=== PATIENT | female | born 1995 | race Caucasian/White ===

== ENCOUNTER 2017-12-31 11:46 | Emergency (ER) | END 2017-12-31 17:56 | disposition home or self-care (01) ==

== ENCOUNTER 2018-12-26 00:30 | Outpatient (CLI) | payer OTHER ==
[~2018-12-26] VITALS: Ht 154.9 cm; Wt 67.0 kg
[~2018-12-26 00:30] MED LIST: ACET500C5 PO; NITR-58 PO
[2018-12-26 00:56] VITALS: BP 108/61; PULSE 104; RESP 16; Ht 154.9 cm; Wt 67.0 kg
[2018-12-26] MEDS ORDERED: CALC600T24 PO (01:07)
[2018-12-26] MEDS ORDERED: PREN-93 PO (01:07)
[2018-12-26] MEDS ORDERED: FER325 PO (01:07)
[2018-12-26] MEDS ORDERED: ACETAMINOPHEN 500 MG TAB PO ONE (01:17)
--- NOTE | 2018-12-26 04:06 | TRIAGE ---
OB Triage Datetime Report Generated by CPN: 12/26/2018 04:05 Datetime: 12/26/2018 02:54 Labor Evaluation Frequency: 0 Monitor Mode: External Pattern: Normal: <= 5 Contractions in 10 Minutes Heart Rate FHR Baseline Rate: 145 Monitor Mode: External US Variability: Moderate 6-25 bpm Decelerations: None Datetime: 12/26/2018 02:35 Pain Assessment Pain Scale: 0 Pain Presence: None/Denies Pain Type: N/A Pain Assessment Comments: PT DENIES FEELING ANY PAIN. PT WAS ABLE TO SLEEP Datetime: 12/26/2018 02:02 Monitor Mode: External US Datetime: 12/26/2018 02:00 Labor Evaluation Frequency: X1 Monitor Mode: External Duration (sec)2399: 40 Pattern: Normal: <= 5 Contractions in 10 Minutes Heart Rate FHR Baseline Rate: 145 Monitor Mode: External US Variability: Moderate 6-25 bpm Accelerations: 15X15 Decelerations: None Comments: LOSS OF CONTACT DUE TO GESTATIONAL AGE Datetime: 12/26/2018 00:57 Time of Arrival: 12/26/2018 00:30 EGA: 23.3 Arrived By: Wheelchair Arrived From: Home Chief Complaint: lower abdominal pain Movement: Present Contractions: Denies/Absent Rupture of Membranes: Denies Vaginal Bleeding: None Vaginal Discharge: Denies Recent Sexual Intercouse: Yes Abdominal Trauma: Not Applicable Patient Complaints: Cramping Time Provider Notified: 12/26/2018 01:11 Provider Notified: DESIRAE Initial Plan: cefm, CX LENGTH, UA Datetime: 12/26/2018 00:56 Stage of : OB Triage Assessment Type: Triage Maternal Assessment Level of Consciousness: Fully Conscious DTR's/Clonus: DTRs 2+; No Clonus Headache: Denies Blurred Vision: No Respiratory Effort: Unlabored; Regular Rhythm; Equal Expansion Breath Sounds, Left: Clear and Equal Breath Sounds, Right: Clear and Equal Nausea/Vomiting: Denies RUQ Epigastric Pain: Denies Lower Extremities Edema: None Degree: None Upper Extremities Edema: None Degree: None Facial Edema: None Temperature Route: Oral Fall Risk Assessment History of Falling: (0) No Secondary Diagnosis: (0) No Ambulatory Aid: (0) Bedrest/Nurse Assist IV Therapy: (0) No Gait: (0) Normal/Bedrest/Immobile Mental Status: (0) Oriented to Own Ability Fall Score: 0 Fall Risk Score Definition: No Risk: No action required Pain Assessment Pain Scale: 6 Pain Presence: Constant Pain Type: Cramping Pain Location: Abdomen Pain Goal: 2 Pain Relief Measures: Comfort Measures
--- NOTE | 2018-12-26 14:35 | PN ---
Triage Information Date/Time December 26, 2018 Reason for visit: Abdominal pain Weeks of Gestation 23 weeks and 3 days /Para 4 para 1 Diabetes: none Hypertention: none Additional information 23-year-old with IP 23 weeks and 3 days presented with complaint of abdominal pain. Denies any leaking of fluid, vaginal bleeding. Reports some burning sensation with urination. Denies any fever or chills. Objective Vital Signs Date Temp Pulse Resp B/P (MAP) Pulse Ox O2 O2 Flow FiO2 Time Delivery Rate 12/26/18 98.1 104 16 108/61 Room Air 00:56 (77) Heart Rate: 130's Exam General appearance: Alert and oriented x4 does not appear to be in any acute distress Abdomen: Soft, gravid, fundal height consider gestational age Tenderness in the lower abdomen noted in suprapubic area NST: Category 1 No contraction noted on the monitor UA: Consistent with UTI Cervical length: 4.7 Results/Medications Results 24 hrs Laboratory Tests Test 12/26/18 01:00 Urine Color YELLOW Urine Clarity SLIGHTLY CLOUDY A Urine pH 8.0 Urine Specific [place] 1.005 Urine Ketones NEGATIVE Urine Nitrite NEGATIVE Urine Bilirubin NEGATIVE Urine Urobilinogen NEGATIVE Urine Leukocyte Esterase 2+ H Urine Microscopic RBC 2 Urine Microscopic WBC 24 H Urine Squamous Epithelial Cells FEW Urine Amorphous Crystals FEW A Urine Bacteria FEW A Urine Hemoglobin NEGATIVE Urine Glucose NEGATIVE Urine Total Protein NEGATIVE Imaging Results PROCEDURE: Obstetrical ultrasound, limited. CLINICAL INDICATION: Pelvic pain. TECHNIQUE: Transvaginal evaluation of the cervix was performed. The images were reviewed on a PACS workstation. COMPARISON: No prior studies are available for comparison. FINDINGS: The cervix is closed measuring 4.7 cm. IMPRESSION: Cervical length of 4.7 cm. Assessment/Plan 23 weeks and 3 days Suprapubic pain Urinary symptoms Symptoms consistent with UTI Symptoms resolved with p.o. hydration and Tylenol No evidence of labor Patient will be discharged home with antibiotics, Macrobid 100 mg p.o. twice daily for 7 days prescribed labor precautions kick count and adequate hydration and follow-up within 24-48 hours with primary OB discussed with patient Precaution was given to return to triage if she has any leaking of fluid, vaginal bleeding contractions, fever chills or for any other concerns Verbalized understanding. All questions were answered to patient's best satisfaction LATANYA MERRILL MD Dec 26, 2018 14:35
== END 2018-12-26 03:10 | disposition home or self-care (01) ==
LOC: L-D 00:30 → OBT 00:30
PROVIDERS: ATTEND Obstetrics & Gynecology
DX: O26.892 Other specified pregnancy related conditions, second trimester (principal); Z3A.23 23 weeks gestation of pregnancy; R10.2 Pelvic and perineal pain
CPT/HCPCS: 76817; 81001; Z7500; Z7610; G0463

== ENCOUNTER 2019-02-15 05:44 | Inpatient (IN) | payer SELFPAY ==
[~2019-02-15] VITALS: Ht 154.9 cm; Wt 68.3 kg
[~2019-02-15 05:44] MED LIST changes: +CALC600T24 PO; +FER325 PO; -NITR-58 PO; +PREN-93 PO
[2019-02-15 05:48] VITALS: Ht 154.9 cm; Wt 68.3 kg
[2019-02-15 05:49] VITALS: BP 101/57; PULSE 136; RESP 16
[2019-02-15] MEDS ORDERED: LACTATED RINGER'S 1,000 ML IV SCH (06:30)
[2019-02-15] MEDS: SOD CHLORIDE 0.9% 1,000 ML IV SCH ×2 (10:39→18:41)
[2019-02-15] MEDS: CEFTRIAXONE 1 GM/50 ML (PMX) 50 ML IVPB SCH (10:39)
--- NOTE | 2019-02-15 16:18 | HP ---
Date/Time of Note Date/Time of Note DATE: 02/15/19 TIME: 16:16 OB - History Hx of Present Chief Complaint: back pain Estimated Due Date: Apr 21, 2019 : 4 Para: 1 Spontaneous : 2 Therapeutic : 0 Care: Good Care Obstetrical Complications: None Past Family/Social History * Past Medical, Surgical, Family and Obstetric Histories reviewed from chart. OB Admission Exam Vital Signs Vital Signs Vital Signs Date Temp Pulse Resp B/P (MAP) Pulse Ox O2 O2 Flow FiO2 Time Delivery Rate 02/15/19 99.2 136 16 101/57 Room Air 05:49 (72) Physical Exam HEENT: WNL Heart: Rhythm Normal Lungs: Clear, Equal Abdomen: WNL Extremities: Normal Reflexes: Normal Cervical Dilatation: None Heart Rate: 150's Accelerations: Accelerations Present Decelerations: No Decelerations Last 72 hours Lab Results CBC & BMP 02/15/19 06:52 Liver Function Test 02/15/19 06:52 Alanine Aminotransferase (ALT/SGPT) 19 Albumin 3.3 Alkaline Phosphatase 101 Aspartate Amino Transf (AST/SGOT) 14 L Direct Bilirubin 0.00 Total Protein 6.4 OB Assessment/Plan Reason for admission: other Other Assessment: R/O pyelonephritis Plan: Other Other plan: Admit Urine culture Blood culture IV CARRIE Dueñas MD February 15, 2019 16:18
[2019-02-15] MEDS: ACETAMINOPHEN 500 MG TAB PO PRN (19:19)
[2019-02-16] MEDS: SOD CHLORIDE 0.9% 1,000 ML IV SCH ×3 (02:31→17:58)
[2019-02-16] MEDS: CEFTRIAXONE 1 GM/50 ML (PMX) 50 ML IVPB SCH (09:21)
[2019-02-16] MEDS: ACETAMINOPHEN 500 MG TAB PO PRN (09:27)
--- NOTE | 2019-02-16 19:25 | DS ---
Date/Time of Note Date/Time of Note DATE: 02/16/19 TIME: 19:25 Obstetrical Discharge Record Final Diagnosis Final Diagnosis: not delivered Condition on Discharge Physical Assessment Voiding: Yes Bowel Movement: Yes Calf Tenderness: No Patient Condition: Stable CARRIE ARGUETA MD February 16, 2019 19:25
[2019-02-16] MEDS ORDERED: PREN1TAB64 PO (20:47)
[2019-02-16] MEDS ORDERED: FERR325T5 PO (20:50)
== END 2019-02-16 21:20 | disposition home or self-care (01) | DRG 833 ==
LOC: OBT 05:44 → L-D 05:46 → OBT 09:00 → L-D 09:10 → MERGE 09:10 → L-D 09:36 → PP1 19:58
PROVIDERS: ADMIT Obstetrics & Gynecology; ATTEND Obstetrics & Gynecology
DX: O26.893 Other specified pregnancy related conditions, third trimester (principal); M54.9 Dorsalgia, unspecified; Z3A.30 30 weeks gestation of pregnancy
CPT/HCPCS: 36415; 76815; 76817; 76818; 80053; 81001; 85025; 87086; 93005; 96360; 96361; G0463; J0696; J7030; J7120

== ENCOUNTER 2019-04-09 08:10 | Inpatient (IN) | payer OTHER ==
[~2019-04-09] VITALS: Ht 154.9 cm; Wt 71.3 kg
[~2019-04-09 08:10] MED LIST changes: +FERR325T5 PO; +PREN1TAB64 PO
[2019-04-09 08:28] VITALS: Ht 154.9 cm; Wt 71.3 kg
[2019-04-09 08:29] VITALS: BP 107/60; PULSE 100; RESP 18
[2019-04-09] MEDS: LACTATED RINGER'S 1,000 ML IV SCH (10:59)
--- NOTE | 2019-04-09 13:39 | TRIAGE ---
OB Triage Datetime Report Generated by CPN: 04/09/2019 13:39 Datetime: 04/09/2019 13:00 Stage of : OB Triage Maternal Assessment Level of Consciousness: Keenly Alert, Responsive Labor Evaluation Frequency: 4/hr with some irritability noted Monitor Mode: External Quality: Mild Resting Tone [place]: Relaxed Heart Rate FHR Baseline Rate: 150 Monitor Mode: External US Variability: Moderate 6-25 bpm Accelerations: 15X15 Decelerations: None Pain Assessment Pain Scale: 0 Pain Goal: 3 Vaginal Exam Membrane Status: Intact Vaginal Bleeding: None Datetime: 04/09/2019 12:00 Stage of : OB Triage Maternal Assessment Level of Consciousness: Keenly Alert, Responsive Labor Evaluation Frequency: 3UC/HR Monitor Mode: External Duration (sec)2399: 90-110 Quality: Mild Resting Tone [place]: Relaxed Heart Rate FHR Baseline Rate: 150 Monitor Mode: External US Variability: Moderate 6-25 bpm Accelerations: 15X15 Decelerations: None Category: Category I Pain Assessment Pain Scale: 0 Pain Goal: 3 Vaginal Exam Membrane Status: Intact Vaginal Bleeding: None Datetime: 04/09/2019 11:00 Stage of : OB Triage Maternal Assessment Level of Consciousness: Keenly Alert, Responsive Labor Evaluation Frequency: 0 Monitor Mode: External Resting Tone [place]: Relaxed Heart Rate FHR Baseline Rate: 150 Monitor Mode: External US Variability: Moderate 6-25 bpm Accelerations: 15X15 Decelerations: None Pain Assessment Pain Scale: 0 Pain Goal: 3 Vaginal Exam Membrane Status: Intact Vaginal Bleeding: None Datetime: 04/09/2019 10:00 Stage of : OB Triage Maternal Assessment Level of Consciousness: Keenly Alert, Responsive Labor Evaluation Frequency: 0 Monitor Mode: External Resting Tone [place]: Relaxed Heart Rate FHR Baseline Rate: 150 Monitor Mode: External US Variability: Moderate 6-25 bpm Accelerations: 15X15 Decelerations: None Pain Assessment Pain Scale: 0 Pain Goal: 3 Vaginal Exam Membrane Status: Intact Vaginal Bleeding: None Datetime: 04/09/2019 09:00 Stage of : OB Triage Maternal Assessment Level of Consciousness: Keenly Alert, Responsive Labor Evaluation Frequency: 0 Monitor Mode: External Resting Tone [place]: Relaxed Heart Rate FHR Baseline Rate: 150 Monitor Mode: External US Variability: Moderate 6-25 bpm Accelerations: 15X15 Decelerations: None Category: Category I Pain Assessment Pain Scale: 0 Pain Goal: 3 Vaginal Exam Membrane Status: Intact Vaginal Bleeding: None Datetime: 04/09/2019 08:25 Assessment Type: Triage Maternal Assessment Level of Consciousness: Keenly Alert, Responsive DTR's/Clonus: DTRs 2+; No Clonus Headache: Denies Blurred Vision: No Respiratory Effort: Unlabored; Regular Rhythm; Equal Expansion Breath Sounds, Left: Clear and Equal Breath Sounds, Right: Clear and Equal Nausea/Vomiting: Denies RUQ Epigastric Pain: Denies Lower Extremities Edema: None Degree: None Upper Extremities Edema: None Degree: None Facial Edema: None Fall Risk Assessment History of Falling: (0) No Secondary Diagnosis: (0) No Ambulatory Aid: (0) Bedrest/Nurse Assist IV Therapy: (0) No Gait: (0) Normal/Bedrest/Immobile Mental Status: (0) Oriented to Own Ability Fall Score: 0 Fall Risk Score Definition: No Risk: No action required Datetime: 04/09/2019 08:23 Time of Arrival: 04/09/2019 08:06 EGA: 38.2 Arrived By: Ambulatory Arrived From: Home Chief Complaint: PT. HERE S/P FALL Movement: Present Contractions: Denies/Absent Rupture of Membranes: Denies Vaginal Bleeding: None Vaginal Discharge: Denies Recent Sexual Intercouse: Denies Abdominal Trauma: Fall Patient Complaints: Back Pain Time Provider Notified: 04/09/2019 08:50 Provider Notified: KENDALL Initial Plan: CBC/UA/EFW/BPP/T_S/ (Annotations: Data stored by CPN on behalf of user) Datetime: 04/09/2019 08:19 Monitor Mode: External Monitor Mode: External US Datetime: 12/26/2018 00:57 EGA: 23.3 Datetime: 12/26/2018 00:56 Fall Score: 0 Fall Risk Score Definition: No Risk: No action required
[2019-04-09] MEDS: DEXTROSE 5%-LR 1,000 ML IV SCH ×2 (14:53→20:03)
--- NOTE | 2019-04-09 15:18 | HP ---
Date/Time of Note Date/Time of Note DATE: 04/09/19 TIME: 15:15 OB - History Hx of Present Chief Complaint: s/p fall on abdomen Estimated Due Date: Apr 21, 2019 : 4 Para: 1 Spontaneous : 2 Therapeutic : 0 Care: Good Care Ultrasounds: Normal mid trimester US Obstetrical Complications: None Medical Complications: None Past Family/Social History * Past Medical, Surgical, Family and Obstetric Histories reviewed from chart. GBS Status: Negative OB Admission Exam Vital Signs Vital Signs Vital Signs Date Temp Pulse Resp B/P (MAP) Pulse Ox O2 O2 Flow FiO2 Time Delivery Rate 04/09/19 98.8 100 18 107/60 Room Air 08:29 (76) Physical Exam HEENT: WNL Heart: Rhythm Normal Lungs: Clear, Equal Abdomen: WNL Extremities: Normal Reflexes: Normal Cervical Dilatation: None Membranes: Intact Heart Rate: 120's Accelerations: Accelerations Present Decelerations: No Decelerations Varibility: Moderate Contractions on Admission: 6-10 Minutes Apart Last 72 hours Lab Results CBC & BMP 04/09/19 09:28 OB Assessment/Plan Reason for admission: other Other Assessment: s/p fall Plan: Other Other plan: Admit Continuous monitoring CARRIE ARGUETA MD Apr 09, 2019 15:18
[2019-04-10] MEDS: DEXTROSE 5%-LR 1,000 ML IV SCH (04:29)
[2019-04-10] MEDS: LACTATED RINGER'S 1,000 ML IV SCH ×3 (12:53→22:19)
[2019-04-10] MEDS ORDERED: LACTATED RINGER'S 1,000 ML IV SCH (12:55)
--- NOTE | 2019-04-10 13:13 | QN ---
Documentation Comment Patient has no complaint. Patient denies any leakage of fluid. Afebrile VSS Strip Reactive JARRETT 6.8 Will give IV hydration Repeat JARRETT on 04/11/2019. CARRIE ARGUETA MD Apr 10, 2019 13:13
--- NOTE | 2019-04-11 14:01 | QN ---
Documentation Comment Patient c/o left shouldrer pain. Patient denies any leakage of fluid. Afebrile VSS Strip Reactive JARRETT decreasing Will get Orthopedic consult Will consider induction of labor due to decreasing JARRETT. CARRIE ARGUETA MD Apr 11, 2019 14:01
[2019-04-11] MEDS ORDERED: CARBOPROST 250 MCG INJ IM PRN (15:00)
[2019-04-11] MEDS ORDERED: MISOPROSTOL 200 MCG TAB PR PRN (15:00)
[2019-04-11] MEDS ORDERED: OXYTOCIN 30 UNITS/LR 500 ML IV SCH ×2 (15:00)
[2019-04-11] MEDS ORDERED: METHYLERGONOVINE 0.2 MG INJ IM PRN (15:00)
[2019-04-11] MEDS ORDERED: LIDOCAINE 1% (MPF) 30 ML INJ INJ PRN (15:00)
[2019-04-11] MEDS ORDERED: IBUPROFEN 600 MG TAB PO PRN (15:00)
[2019-04-11] MEDS ORDERED: BUTORPHANOL 2 MG INJ IV PRN (15:00)
[2019-04-11] MEDS ORDERED: OXYTOCIN 30 UNITS/LR 500 ML IV PRN (15:00)
--- NOTE | 2019-04-11 16:40 | CONS ---
Assessment/Plan Assessment/Plan Hospital Course (Demo Recall) 23-year-old female who is 38 weeks with left shoulder pain. At this time there is nothing concerning for any urgent or emergent orthopedic intervention. There is very low concern for any fracture or dislocation of the shoulder. Given that she is 38 weeks and her physical exam and history I do not think x-rays are necessary at this time. She likely has a strain of her rotator cuff versus her long head of the biceps tendon. There is possibility for intra-articular injury including labral injury, however this is less likely. At this time she is weightbearing as tolerated to her left upper extremity. She can use it as tolerated. There are no specific restrictions. If the patient's symptoms do not improve over the next 2 to 4 weeks she should follow-up in my clinic for further evaluation and treatment. At that time we will likely obtain an MRI for further evaluation. Consultation Date/Type/Reason Admit Date/Time Apr 09, 2019 at 13:30 Date of Consultation: Apr 11, 2019 Reason for Consultation Left shoulder pain Date/Time of Note DATE: 04/11/19 TIME: 16:32 Hx of Present Illness This is a 23-year-old female who is 38 weeks who fell 2 days ago on Sunday from a ground-level height. She braced herself with both arms. After the fall she noticed her left shoulder being sore. She was immediately able to range her shoulder and use her left upper extremity as usual but it was sore. She denies any numbness or tingling. Patient complains of pain and subjective weakness with range of motion of the left upper extremity. It is worse today than yesterday. Patient denies any previous injury to the left upper extremity. The pain is mostly anterior but also posterior shoulder as well. No significant radiation of pain down the lateral aspect of the arm. No pain distal to the elbow. Patient denies fever, chills, shortness of breath, chest pain, nausea/vomiting, constipation, diarrhea, numbness, and tingling. Past Medical History Medical History: no pertinent history Home Meds Reported Medications Ferrous Sulfate (Ferrous Sulfate) 325 Mg Tablet.dr, 325 MG PO 02/16/19 Calcium Carbonate* (Calcium Carbonate*) 600 MG Ca Tab, 600 MG PO, TAB 12/26/18 Vit No.124/Iron/FA ( Vitamin Tablet) 1 Each Tablet, 1 EACH PO, TAB 12/26/18 Discontinued Reported Medications PNV CMB#95/Ferrous Fumarate/FA ( Tablet) 1 Each Tablet, 1 TAB PO DAILY, TAB 02/16/19 Ferrous Sulfate* (Ferrous Sulfate*) 325 Mg Tabec, 325 MG PO DAILY, TAB 12/26/18 Discontinued Scripts Acetaminophen* (Tylophen*) 500 Mg Capsule, 1 CAP PO Q6H PRN for PAIN AND OR ELEVATED TEMP, #20 CAP Prov:ELIUD MCBRIDE PA-C 12/31/17 Medications Current Medications Dextrose/Lactated Ringer's 1,000 ml @ 125 mls/hr Q8H IV Last administered on 04/10/19at 04:29; Admin Dose 125 MLS/HR; Start 04/09/19 at 15:00 Lactated Ringer's 1,000 ml @ 150 mls/hr Q6H40M IV Last administered on 04/10/19at 22:19; Admin Dose 150 MLS/HR; Start 04/10/19 at 13:55 Butorphanol Tartrate (Stadol) 2 mg Q2H PRN IV .PAIN SCALE 6-10; Start 04/11/19 at 15:00 Lidocaine (Xylocaine 1% (Mpf)) 30 ml ONCE PRN INJ .EPISIOTOMY; Start 04/11/19 at 15:00 Oxytocin/Lactated Ringer's 500 ml @ 500 mls/hr ONCE POST IV ; Start 04/11/19 at 15:00 Oxytocin/Lactated Ringer's 500 ml @ 125 mls/hr POST IV ; Start 04/11/19 at 15:00 Ibuprofen (Motrin) 600 mg ONCE PRN PO .PAIN 1-5; Start 04/11/19 at 15:00 Oxytocin/Lactated Ringer's 500 ml @ 0 mls/hr ONCE PRN IV .VAGINAL BLEEDING; Start 04/11/19 at 15:00 Methylergonovine Maleate (Methergine) 0.2 mg ONCE PRN IM .VAGINAL BLEEDING; Start 04/11/19 at 15:00 Carboprost Tromethamine (Hemabate) 250 mcg ONCE PRN IM .VAGINAL BLEEDING; Start 04/11/19 at 15:00 Misoprostol (Cytotec) 1,000 mcg ONCE PRN OK .VAGINAL BLEEDING; Start 04/11/19 at 15:00 Allergies: Coded Allergies: No Known Allergy (Unverified , 04/09/19) Past Surgical History Past Surgical Hx: noncontributory Family History Significant Family History: no pertinent family hx Social History Alcohol Use: none Smoking Status: Never smoker Drug Use: none Exam/Review of Systems Exam Vitals Vital Signs Date Temp Pulse Resp B/P (MAP) Pulse Ox O2 O2 Flow FiO2 Time Delivery Rate 04/09/19 98.8 100 18 107/60 Room Air 08:29 (76) Intake and Output 04/10/19 04/10/19 04/11/19 1515:00 23:00 07:00 IntakeIntake Total 800 ml 1600 ml 150 ml OutputOutput Total 1200 ml 2300 ml 400 ml BalanceBalance -400 ml -700 ml -250 ml Exam General Examination: General Appearance Awake, alert, in no acute distress, pleasant and cooperative. Heart regular rhythm. Lungs breathing comfortably, no tachypnea or dyspnea. MUSCULOSKELETAL: Left shoulder Skin is intact. There is no atrophy around the shoulder. There is no ecchymosis around the shoulder or arm. TTP over the long head of the biceps. There is no gross deformity of the shoulder or left upper extremity. ----- Active = Passive ROM: FE: 160 with pain Abd: 160 with pain ER: 70 IR: not tested. Patient lying in bed ----- Muscle Strength Supraspinatus: 4+/5 Subscapularis: 4+/5 Infraspinatus: 4+/5 Teres Minor: 4+/5 ----- Negative impingement Negative drop Sign ----- Sensation intact to light touch in a median, ulnar, radial, and axillary distribution. Motor is intact in a median, ulnar, radial, anterior interosseous, and posterior interosseous nerve distribution. Radial and ulnar artery are +2. Wrist extension and flexion are intact. Compartments are soft Results Result Diagram: 04/09/19 0928 Medications Medication Current Medications Dextrose/Lactated Ringer's 1,000 ml @ 125 mls/hr Q8H IV Last administered on 04/10/19at 04:29; Admin Dose 125 MLS/HR; Start 04/09/19 at 15:00 Lactated Ringer's 1,000 ml @ 150 mls/hr Q6H40M IV Last administered on 04/10/19at 22:19; Admin Dose 150 MLS/HR; Start 04/10/19 at 13:55 Butorphanol Tartrate (Stadol) 2 mg Q2H PRN IV .PAIN SCALE 6-10; Start 04/11/19 at 15:00 Lidocaine (Xylocaine 1% (Mpf)) 30 ml ONCE PRN INJ .EPISIOTOMY; Start 04/11/19 at 15:00 Oxytocin/Lactated Ringer's 500 ml @ 500 mls/hr ONCE POST IV ; Start 04/11/19 at 15:00 Oxytocin/Lactated Ringer's 500 ml @ 125 mls/hr POST IV ; Start 04/11/19 at 15:00 Ibuprofen (Motrin) 600 mg ONCE PRN PO .PAIN 1-5; Start 04/11/19 at 15:00 Oxytocin/Lactated Ringer's 500 ml @ 0 mls/hr ONCE PRN IV .VAGINAL BLEEDING; St art 04/11/19 at 15:00 Methylergonovine Maleate (Methergine) 0.2 mg ONCE PRN IM .VAGINAL BLEEDING; St art 04/11/19 at 15:00 Carboprost Tromethamine (Hemabate) 250 mcg ONCE PRN IM .VAGINAL BLEEDING; Start 04/11/19 at 15:00 Misoprostol (Cytotec) 1,000 mcg ONCE PRN OK .VAGINAL BLEEDING; Start 04/11/19 at 15:00 SALVADOR CLIFFORD MD Apr 11, 2019 16:40
[2019-04-11] MEDS ORDERED: MISOPROSTOL 50 MCG CAPSULE ONE (18:41)
[2019-04-11] MEDS: MISOPROSTOL 50 MCG CAPSULE PO SCH ×2 (18:56→22:57)
[2019-04-11] MEDS: LACTATED RINGER'S 1,000 ML IV SCH (21:09)
[2019-04-12] MEDS: MISOPROSTOL 50 MCG CAPSULE PO SCH ×4 (03:07→18:36)
[2019-04-12] MEDS: LACTATED RINGER'S 1,000 ML IV SCH ×5 (05:12→20:26)
[2019-04-12] MEDS ORDERED: FENTAnyl 2MCG/ML-ROPIV 0.2% 100 ML ONE (06:01)
--- NOTE | 2019-04-12 06:12 | PREAC ---
Date/Time of Note Date/Time of Note DATE: 04/12/19 TIME: 06:11 Anesthesia Eval and Record Evaluation Time Pre-Procedure Interview DATE: 04/12/19 TIME: 06:11 Age 23 Sex female NPO: 8 hrs Preoperative diagnosis Labor Pain Planned procedure Labor Epidural Past Medical History Past Medical History: Includes Heme: Anemia : : (2), Para: (1), Gestational age: (38) Surgery & Anesthesia Issues No known issue Meds Anticoagulation: No Beta Lasha[place] within 24 hr: No Reason Beta Lashaun not given: Pt. not on B-Lashaun Reported Medications Ferrous Sulfate (Ferrous Sulfate) 325 Mg Tablet.dr, 325 MG PO 02/16/19 Calcium Carbonate* (Calcium Carbonate*) 600 MG Ca Tab, 600 MG PO, TAB 12/26/18 Vit No.124/Iron/FA ( Vitamin Tablet) 1 Each Tablet, 1 EACH PO, TAB 12/26/18 Discontinued Reported Medications PNV CMB#95/Ferrous Fumarate/FA ( Tablet) 1 Each Tablet, 1 TAB PO DAILY, TAB 02/16/19 Ferrous Sulfate* (Ferrous Sulfate*) 325 Mg Tabec, 325 MG PO DAILY, TAB 12/26/18 Discontinued Scripts Acetaminophen* (Tylophen*) 500 Mg Capsule, 1 CAP PO Q6H PRN for PAIN AND OR ELEVATED TEMP, #20 CAP Prov:ELIUD MCBRIDE PA-C 12/31/17 Current Medications Dextrose/Lactated Ringer's 1,000 ml @ 125 mls/hr Q8H IV Last administered on 04/10/19at 04:29; Admin Dose 125 MLS/HR; Start 04/09/19 at 15:00 Lactated Ringer's 1,000 ml @ 150 mls/hr Q6H40M IV Last administered on 04/12/19at 05:12; Admin Dose 150 MLS/HR; Start 04/10/19 at 13:55 Butorphanol Tartrate (Stadol) 2 mg Q2H PRN IV .PAIN SCALE 6-10; Start 04/11/19 at 15:00 Lidocaine (Xylocaine 1% (Mpf)) 30 ml ONCE PRN INJ .EPISIOTOMY; Start 04/11/19 at 15:00 Oxytocin/Lactated Ringer's 500 ml @ 500 mls/hr ONCE POST IV ; Start 04/11/19 at 15:00 Oxytocin/Lactated Ringer's 500 ml @ 125 mls/hr POST IV ; Start 04/11/19 at 15:00 Ibuprofen (Motrin) 600 mg ONCE PRN PO .PAIN 1-5; Start 04/11/19 at 15:00 Oxytocin/Lactated Ringer's 500 ml @ 0 mls/hr ONCE PRN IV .VAGINAL BLEEDING; Start 04/11/19 at 15:00 Methylergonovine Maleate (Methergine) 0.2 mg ONCE PRN IM .VAGINAL BLEEDING; Start 04/11/19 at 15:00 Carboprost Tromethamine (Hemabate) 250 mcg ONCE PRN IM .VAGINAL BLEEDING; Start 04/11/19 at 15:00 Misoprostol (Cytotec) 1,[address] .VAGINAL BLEEDING; Start 04/11/19 at 15:00 Misoprostol (Cytotec 50 Mcg Capsule) 50 mcg Q4 PO Last administered on 04/12/19at 03:07; Admin Dose 50 MCG; Start 04/11/19 at 19:00 Meds reviewed: Yes Allergies Coded Allergies: No Known Allergy (Unverified , 04/09/19) Allergies Reviewed: Yes Labs/Studies Labs Reviewed: Reviewed by anesthesiologist Result Diagram: 04/11/19 1556 Laboratory Tests 04/11/19 15:56 test: Positive Studies: ECG (n/a), CXR (n/a) Pre-procedure Exam Last vitals Vital Signs Date Temp Pulse Resp B/P (MAP) Pulse Ox O2 O2 Flow FiO2 Time Delivery Rate 04/09/19 98.8 100 18 107/60 Room Air 08:29 (76) Airway: Adequate mouth opening, Adequate thyromental dist Mallampati: Mallampati II Teeth: Normal Lung: Normal Heart: Normal ASA Physical Status ASA physical status: 2 Emergency: None Planned Anesthetic Neuraxial: Epidural Planned Pain Management Epidural Pre-operative Attestations Prior to commencing anesthesia and surgery, the patient was re-evaluated, there was verification of: *The patient's identity *The results of appropriate recent lab work and preoperative vital signs *The above evaluation not changing prior to induction *Anesthetic plan, risk benefits, alternative and complications discussed with patient/family; questions answered; patient/family understands, accepts and wishes to proceed. LIDIA ALEXANDER MD Apr 12, 2019 06:12
--- NOTE | 2019-04-12 06:14 | PAC ---
Date/Time of Note Date/Time of Note DATE: 04/12/19 TIME: 06:13 Post-Anesthesia Notes Post-Anesthesia Note Last documented vital signs Vital Signs Date Temp Pulse Resp B/P (MAP) Pulse Ox O2 O2 Flow FiO2 Time Delivery Rate 04/12/19 98.8 100 18 107/60 100 Room Air 08:29 (76) Activity: WNL Respiratory function: WNL Cardiovascular function: WNL Mental status: Baseline Pain reasonably controlled: Yes Hydration appropriate: Yes Nausea/Vomiting absent: Yes LIDIA ALEXANDER MD Apr 12, 2019 06:14
[2019-04-12] MEDS ORDERED: NALOXONE (0.4 MG/ML) INJ IV PRN (06:30)
--- NOTE | 2019-04-12 13:12 | QN ---
Documentation Comment No complaint Afebrile VSS Strip Category I Continue with induction of labor. CARRIE ARGUETA MD Apr 12, 2019 13:12
[2019-04-12] MEDS: FENTAnyl 2MCG/ML-ROPIV 0.2% 100 ML BAG EPI SCH (14:57)
[2019-04-13] MEDS: OXYTOCIN 30 UNITS/LR 500 ML IV SCH ×2 (00:11→21:08)
[2019-04-13] MEDS: FENTAnyl 2MCG/ML-ROPIV 0.2% 100 ML BAG EPI SCH ×3 (00:11→20:12)
[2019-04-13] MEDS: LACTATED RINGER'S 1,000 ML IV SCH ×3 (04:30→21:06)
[2019-04-14] MEDS: LACTATED RINGER'S 1,000 ML IV SCH ×5 (04:51→20:37)
[2019-04-14] MEDS: FENTAnyl 2MCG/ML-ROPIV 0.2% 100 ML BAG EPI SCH ×3 (05:41→20:20)
--- NOTE | 2019-04-14 23:32 | PREAC ---
Date/Time of Note Date/Time of Note DATE: 04/14/19 TIME: 23:31 Anesthesia Eval and Record Evaluation Time Pre-Procedure Interview DATE: 04/14/19 TIME: 23:31 Age 23 Sex female NPO: 8 hrs Preoperative diagnosis labor pain Planned procedure epidural Past Medical History Past Medical History: Includes : Gestational age: (38.6) Surgery & Anesthesia Issues No known issue Meds Anticoagulation: No Beta Lashaun within 24 hr: No Reason Beta Lashaun not given: Pt. not on B-Lashaun Reported Medications Ferrous Sulfate (Ferrous Sulfate) 325 Mg Tablet.dr, 325 MG PO 02/16/19 Calcium Carbonate* (Calcium Carbonate*) 600 MG Ca Tab, 600 MG PO, TAB 12/26/18 Vit No.124/Iron/FA ( Vitamin Tablet) 1 Each Tablet, 1 EACH PO, TAB 12/26/18 Discontinued Reported Medications PNV CMB#95/Ferrous Fumarate/FA ( Tablet) 1 Each Tablet, 1 TAB PO DAILY, TAB 02/16/19 Ferrous Sulfate* (Ferrous Sulfate*) 325 Mg Tabec, 325 MG PO DAILY, TAB 12/26/18 Discontinued Scripts Acetaminophen* (Tylophen*) 500 Mg Capsule, 1 CAP PO Q6H PRN for PAIN AND OR ELEVATED TEMP, #20 CAP Prov:ELIUD MCBRIDE PA-C 12/31/17 Current Medications Butorphanol Tartrate (Stadol) 2 mg Q2H PRN IV .PAIN SCALE 6-10; Start 04/11/19 at 15:00 Lidocaine (Xylocaine 1% (Mpf)) 30 ml ONCE PRN INJ .EPISIOTOMY; Start 04/11/19 at 15:00 Oxytocin/Lactated Ringer's 500 ml @ 500 mls/hr ONCE POST IV ; Start 04/11/19 at 15:00 Oxytocin/Lactated Ringer's 500 ml @ 125 mls/hr POST IV ; Start 04/11/19 at 15:00 Ibuprofen (Motrin) 600 mg ONCE PRN PO .PAIN 1-5; Start 04/11/19 at 15:00 Oxytocin/Lactated Ringer's 500 ml @ 0 mls/hr ONCE PRN IV .VAGINAL BLEEDING; Start 04/11/19 at 15:00 Methylergonovine Maleate (Methergine) 0.2 mg ONCE PRN IM .VAGINAL BLEEDING; Start 04/11/19 at 15:00 Carboprost Tromethamine (Hemabate) 250 mcg ONCE PRN IM .VAGINAL BLEEDING; Start 04/11/19 at 15:00 Misoprostol (Cytotec) 1,000 mcg ONCE PRN IA .VAGINAL BLEEDING; Start 04/11/19 at 15:00 Naloxone HCl (Narcan) 0.2 mg Q2M PRN IV .RESP RATE; Start 04/12/19 at 06:30 Fentanyl/ Ropivacaine 100 ml EPIDURAL (PCEA) EPI Last administered on 04/14/19at 20:20; Admin Dose 100 ML; Start 04/12/19 at 06:30 Oxytocin/Lactated Ringer's 500 ml @ 0 mls/hr FOR INDUCTION IV Last administered on 04/13/19at 21:08; Admin Dose 1 MLS/HR; Start 04/12/19 at 23:00 Lactated Ringer's 1,000 ml @ 125 mls/hr Q8H IV Last administered on 04/14/19at 20:37; Admin Dose 125 MLS/HR; Start 04/14/19 at 02:46 Meds reviewed: Yes Allergies Coded Allergies: No Known Allergy (Unverified , 04/09/19) Allergies Reviewed: Yes Labs/Studies Labs Reviewed: Reviewed by anesthesiologist Result Diagram: 04/11/19 1556 test: Positive Studies: ECG (n/a), CXR (n/a) Pre-procedure Exam Airway: Adequate mouth opening Mallampati: Mallampati I Teeth: Normal Lung: Normal Heart: Normal ASA Physical Status ASA physical status: 2 Emergency: None Planned Anesthetic Neuraxial: Epidural Pre-operative Attestations Prior to commencing anesthesia and surgery, the patient was re-evaluated, there was verification of: *The patient's identity *The results of appropriate recent lab work and preoperative vital signs *The above evaluation not changing prior to induction *Anesthetic plan, risk benefits, alternative and complications discussed with patient/family; questions answered; patient/family understands, accepts and wishes to proceed. INGRIS JACK MD Apr 14, 2019 23:32
[2019-04-15] VITALS (10 sets, daily range): BP systolic 82–132; BP diastolic 59–77; PULSE 69–83; RESP 16–22
--- NOTE | 2019-04-15 01:45 | LDN ---
Date/Time of Note Date/Time of Note DATE: 04/15/19 TIME: 01:43 Delivery Summary of a viable baby girl weighing 2925 grams or 6# 7 oz, 10.25" long, and with Apgars of 9/9. Weeks of Gestation 39w Placenta Delivered: Spontaneously Meconium: none Episiotomy: No Perineal laceration: 0 Anesthesia type: Epidural Estimated blood loss: 150 Sponge & Needle done & correct: Yes All needle counts correct: Yes Any foreign bodies felt in the: No (vagina) Infant Delivery Information Sex Sex: female Apgars 1 Minute: 9 5 Minute: 9 Suctioning Nose & mouth suctioned at araceli: Yes Delee suction performed: No Umbilical Cord Umbilical cord with: 3 Vessels Cord presentations: nuchal cord Nuchal cord present X: 1 Cord Blood was obtained: Yes Mother & Baby Disposition Disposition Mom & Baby to Maternity; Good: Yes Baby to NICU: No CARA RODRIGUEZ MD Apr 15, 2019 01:45
[2019-04-15] MEDS ORDERED: METHYLERGONOVINE 0.2 MG INJ IM PRN (02:00)
[2019-04-15] MEDS ORDERED: MISOPROSTOL 200 MCG TAB PR PRN (02:00)
[2019-04-15] MEDS ORDERED: OXYTOCIN 30 UNITS/LR 500 ML IV PRN (02:00)
[2019-04-15] MEDS ORDERED: CARBOPROST 250 MCG INJ IM PRN (02:00)
[2019-04-15] MEDS ORDERED: ACETAMINOPHEN 325 MG TAB PO ONE (02:30)
[2019-04-15] MEDS: HYDROCODONE/APAP (5/325) TAB PO PRN ×2 (04:47→09:08)
[2019-04-15] MEDS: IBUPROFEN 600 MG TAB PO SCH ×4 (05:55→23:55)
[2019-04-15] MEDS: OXYTOCIN 30 UNITS/LR 500 ML IV SCH ×2 (05:55→12:11)
[2019-04-15] MEDS: LACTATED RINGER'S 1,000 ML IV* SCH ×3 (06:10→17:39)
[2019-04-15] MEDS: LANOLIN HPA 1 PKT TOP PRN (12:11)
[2019-04-16] VITALS: BP 107/64; PULSE 90; RESP 19
[2019-04-16 04:05] VITALS: BP 107/66; PULSE 81; RESP 20
[2019-04-16] MEDS: LANOLIN HPA 1 PKT TOP PRN (06:00)
[2019-04-16] MEDS: IBUPROFEN 600 MG TAB PO SCH ×3 (06:13→18:09)
[2019-04-16 08:00] VITALS: BP 108/69; PULSE 73; RESP 18
--- NOTE | 2019-04-16 08:03 | PAC ---
Date/Time of Note Date/Time of Note DATE: 04/16/19 TIME: 08:01 Post-Anesthesia Notes Post-Anesthesia Note Last documented vital signs Vital Signs Date Temp Pulse Resp B/P (MAP) Pulse Ox O2 O2 Flow FiO2 Time Delivery Rate 04/16/19 97.8 81 20 107/66 99 Room Air 04:05 (80) Activity: WNL Respiratory function: WNL Cardiovascular function: WNL Mental status: Baseline Pain reasonably controlled: Yes Hydration appropriate: Yes Nausea/Vomiting absent: No INGRIS JACK MD Apr 16, 2019 08:03
[2019-04-16 15:55] VITALS: BP 108/70; PULSE 74; RESP 18
[2019-04-16 16:00] VITALS: BP 108/70; PULSE 74; RESP 18
--- NOTE | 2019-04-16 18:29 | DS ---
Date/Time of Note Date/Time of Note DATE: 04/16/19 TIME: 18:28 Obstetrical Discharge Record Final Diagnosis Final Diagnosis: Term delivered Vaginal Delivery Obstetrical Delivery: Spontaneous Complications Induction: Yes Condition on Discharge Physical Assessment Voiding: Yes Bowel Movement: Yes Breast: Soft, non-tender, Filling Fundus: Firm Calf Tenderness: No Patient Condition: Stable CARRIE ARGUETA MD Apr 16, 2019 18:29
[2019-04-16 19:45] VITALS: BP 109/72; PULSE 84; RESP 18
[2019-04-17] MEDS: IBUPROFEN 600 MG TAB PO SCH ×3 (00:03→11:52)
[2019-04-17 04:00] VITALS: BP 113/69; PULSE 72; RESP 18
[2019-04-17 08:30] VITALS: BP_SYST 118; BP_SYST 122; BP_DIAS 75; BP_DIAS 76; PULSE 69; PULSE 85; RESP 18
[2019-04-17] MEDS ORDERED: DIPHTH/TET/ACEL PERTUSS (ADULT) 0.5 ML VIAL IM* ONE (09:00)
--- NOTE | 2019-04-18 13:25 | DELSUM ---
Delivery Summary A-C Datetime Report Generated by CPN: 04/18/2019 13:25 DELIVERY PERSONNEL Lumber Piler: Bhakti Lugo MATERNAL INFORMATION Delivery Anesthesia: Epidural Medications in Delivery: 30 UNITS PITOCIN IN 500ML LR Delivery QBL (ml): 150 Placenta Cultured: No Maternal Complications: None LABOR SUMMARY EDC: 04/21/2019 00:00 No. Babies in Womb: 1 Attempted: No Labor Anesthesia: Epidural LABOR INFORMATION Reason for Induction: Oligohydramnios Onset of Labor: 04/14/2019 12:22 Complete Dilatation: 04/15/2019 01:12 Cervical Ripening Agents: Cytotec @ Oxytocin: Induction Group B Beta Strep: Negative Antibiotics # of Doses: 0 Steroids Given: None Reason Steroids Not Administered: Not Applicable MEMBRANES Membranes Rupture Method: Artificial Rupture of Membranes: 04/14/2019 12:22 Length of Rupture (hr): 13.00 Amniotic Fluid Color: Clear Amniotic Fluid Amount: Small Amniotic Fluid Odor: None STAGES OF LABOR Stage 1 hr: 12 Stage 1 min: 50 Stage 2 hr: 0 Stage 2 min: 10 Stage 3 hr: 0 Stage 3 min: 3 Total Time in Labor hr: 13 Total Time in Labor min: 3 VAGINAL DELIVERY Episiotomy: None Laceration Extension: N/A Laceration Type: None Laceration Repair: Not Applicable Initial Vag Sponge Count: 10 Final Vag Sponge Count: 10 Initial Vag Sharps Count: 1 Final Vag Sharps Count: 1 Sponge Count Correct: Yes; Vaginal Sweep Performed Sharps Count Correct: Yes BABY A INFORMATION Delivery Date/Time: 04/15/2019 01:22 Method of Delivery: Vaginal Born in Route : No : N/A Forceps: N/A Vacuum Extraction: N/A Shoulder Dystocia : No SHOULDER DYSTOCIA BABY A Delivery Date/Time: 04/15/2019 01:22 PRESENTATION/POSITION BABY A Presentation: Cephalic Cephalic Presentation: Vertex Vertex Position: Left Occipital Anterior Breech Presentation: N/A PLACENTA INFORMATION BABY A Placenta Delivery Time : 04/15/2019 01:25 Placenta Method of Delivery: Spontaneous Placenta Status: Delivered SCORES BABY A Heart Rate 1 min: >100 bpm Resp Effort 1 min: Good Cry Reflex Irritability 1 min: Cough/Sneeze/Pulls Away Muscle Tone 1 min: Active Motion Color 1 min: Body Deridder, Extremit Blue Resuscitation Effort 1 min: Tactile Stimulation SCORE 1 MIN: 9 Heart Rate 5 min: >100 bpm Resp Effort 5 min: Good Cry Reflex Irritability 5 min: Cough/Sneeze/Pulls Away Muscle Tone 5 min: Active Motion Color 5 min: Body Deridder, Extremit Blue Resuscitation Effort 5 min: Tactile Stimulation SCORE 5 MIN: 9 INFANT INFORMATION BABY A Gestational Age at Delivery: 39.1 Gestational Status: Full Term- 39- 40.6 Weeks Outcome : Liveborn, with signs of life Condition : Stable Sex: Female IDENTIFICATION/MEDS BABY A ID Band Number: [id number] ID Band Location: Right Leg; Left Arm Sensor Applied: Yes Sensor Number: [id number] Sensor Location : Cord Clamp Vitamin K Given : Not Given Erythromycin Given: Not Given WEIGHT/LENGTH BABY A Birthweight (gm): 2965 Infant Weight (lb): 6 Weight (oz): 9 Infant Length (in): 19.25 Infant Length (cm): 48.90 CORD INFORMATION BABY A No. Cord Vessels: 3 Nuchal Cord : Around Neck x1, Loose Cord Blood Taken: Yes Suction: Mouth; Nose
== END 2019-04-17 12:55 | disposition home or self-care (01) | DRG 807 ==
LOC: OBT 08:10 → L-D 08:18 → OBT 13:30 → L-D 13:30 → PP1 04-15 03:23
PROVIDERS: ADMIT Obstetrics & Gynecology; ATTEND Obstetrics & Gynecology
PROC: 10E0XZZ Delivery of Products of Conception, External Approach (ICD-10-PCS; principal; 2019-04-15)
DX: O69.81X0 Labor and delivery complicated by cord around neck, without compression, not applicable or unspecified (principal); Z37.0 Single live birth; Z3A.39 39 weeks gestation of pregnancy
CPT/HCPCS: 36415; 62322; 76815; 76818; 81003; 85025; 85610; 85730; 86592; 86850; 86900; 86901; 96360; 96361; G0463; J2590; J3010; J7120; J7121